=== PATIENT | female | born 1940 | race Caucasian/White ===

== ENCOUNTER 2020-06-24 23:53 | Emergency (ER) | payer OTHER ==
[~2020-06-24] VITALS: Ht 160 cm; Wt 59.0 kg
[~2020-06-24 23:53] MED LIST: ALBU8.5H8; GLUC100017 PO; OMEG1CAP48; SIMV20TA2 PO
[2020-06-24 23:55] VITALS: BP_SYST 134
[2020-06-25] MEDS ORDERED: NACL 0.9% 1,000 ML IV ONE (00:15)
[2020-06-25 00:44] LABS: ANION GAP 7 (5-15); CALCIUM 9.5 mg/dL (8.4-11.0); CHLORIDE 107 mmol/L (98-107); CREATININE 0.74 mg/dL (0.55-1.30); GLUCOSE 108 mg/dL (70-99); POTASSIUM 3.3 mmol/L (3.5-5.1); SODIUM SERUM 144 mmol/L (136-145); UREA NITROGEN, BLOOD 17 mg/dL (8-21)
[2020-06-25 00:48] LABS: BASOPHILS # (AUTO) 0.1 K/uL (0.0-0.2); BASOPHILS % (AUTO) 0.6 % (0.0-2.0); EOSINOPHILS # (AUTO) 0.3 K/uL (0.0-0.4); EOSINOPHILS % (AUTO) 3.9 % (0.0-4.0); HEMOGLOBIN 15.1 g/dL (12.0-16.0); LYMPHOCYTES # (AUTO) 3.2 K/uL (1.0-5.5); MEAN CORPUSCULAR HEMOGLOBIN 28 pg (27-31); MEAN CORPUSCULAR HGB CONC 33 % (32-36); MEAN CORPUSCULAR VOLUME 86 fL (79.0-98.0); MONOCYTES # (AUTO) 0.5 K/uL (0.0-1.0); MONOCYTES % (AUTO) 5.9 % (1.7-9.3); NEUTROPHILS # (AUTO) 4.7 K/uL (1.8-7.7); NEUTROPHILS % (AUTO) 53.6 % (40.0-70.0); PLATELET COUNT (AUTO) 258 K/uL (130-430); RED BLOOD CELL COUNT(AUTO) 5.35 MIL/uL (4.2-6.2); RED CELL DISTRIBUTION WIDTH 14.1 % (9.0-15.0); WHITE BLOOD COUNT (AUTO) 8.8 K/uL (4.8-10.8)
[2020-06-25 00:59] LABS: ALANINE AMINOTRANSFERASE 33 U/L (12-78); ASPARTATE AMINOTRANSFERASE 24 U/L (10-37); THYROID STIMULATING HORMONE 3.33 uIu/mL (0.36-3.74); TOTAL BILIRUBIN 0.4 mg/dL (0.0-1.0)
[2020-06-25 00:59] LABS: BILIRUBIN,URINE NEGATIVE (NEGATIVE); COLOR,URINE YELLOW (YELLOW); GLUCOSE,URINE NEGATIVE (NEGATIVE); KETONES,URINE 1+ (NEGATIVE); LEUKOCYTE ESTERASE ,URINE TRACE (NEGATIVE); NITRITE, URINE NEGATIVE (NEGATIVE); PH,URINE 5.5 (5.0-8.0); PROTEIN URINE NEGATIVE (NEGATIVE); UROBILINOGEN,URINE 0.2 (0.2-1.0)
[2020-06-25 01:02] LABS: BLOOD, URINE TRACE (NEGATIVE); CLARITY/URINE SLIGHTLY HAZY (CLEAR)
[2020-06-25] MEDS ORDERED: POTASSIUM CHLORIDE 20 MEQ TAB.PRT.SR PO ONE (01:45)
[2020-06-25 01:55] LABS: BACTERIA,URINE FEW /HPF (None Seen)
[2020-06-25 01:58] VITALS: BP_SYST 122
== END 2020-06-25 01:58 | disposition home or self-care (01) ==
LOC: SED 23:53
DX: R00.2 Palpitations (principal); J45.909 Unspecified asthma, uncomplicated; E11.9 Type 2 diabetes mellitus without complications; Z79.899 Other long term (current) drug therapy
CPT/HCPCS: 36415; 71045; 80053; 81000; 84443; 84484; 85025; 87086; 93005; 96360; 99285; J7030